=== PATIENT | female | born 1955 ===

== ENCOUNTER 2019-12-08 09:58 | Outpatient (CLI) | payer MEDICAID ==
--- NOTE | 2019-12-08 16:44 | Consultation ---
DATE OF CONSULTATION: 12/08/2019 CONSULTING PHYSICIAN: Lefty Pathak MD. CHIEF COMPLAINT: Stool OB positive x2. PAST MEDICAL HISTORY: None. PAST SURGICAL HISTORY: Ovarian cyst removal in 1984. MEDICATIONS: She is taking calcium supplement. FAMILY HISTORY: Mother had ovarian cancer. SOCIAL HISTORY: The patient drinks 3 glasses of wine a day. She used to be a smoker, she quit. ALLERGIES: No known drug allergies. REVIEW OF SYSTEMS: Negative. PHYSICAL EXAMINATION: HEENT: Normocephalic and atraumatic. Sclerae anicteric. NECK: Supple. No evidence of obvious lymphadenopathy. CARDIOVASCULAR: Regular rate and rhythm. Plus S1, S2. LUNGS: Clear to auscultation bilaterally. ABDOMEN: Positive bowel sounds. Soft and nontender. No rebound. No guarding. No peritoneal sign. EXTREMITIES: No cyanosis. No clubbing. No edema. ASSESSMENT AND PLAN: This is a 64-year-old female with stool OB positive x2, needs endoscopy and colonoscopy. The patient was given instruction for both. Prep was explained to her. Risks and benefits of procedure were explained to her. We are going to schedule her when authorization is obtained. Lefty Pathak M.D. DR: [id number] JOB#: [id number] CC:
== END 2019-12-08 11:58 | disposition home or self-care (01) ==
LOC: PAN 09:58
DX: K92.1 Melena (principal); Z87.891 Personal history of nicotine dependence; Z80.41 Family history of malignant neoplasm of ovary
CPT/HCPCS: G0463

== ENCOUNTER 2020-04-05 10:19 | Outpatient (CLI) | payer MEDICAID ==
[2020-04-05 11:22] VITALS: BP 141/87
== END 2020-04-05 12:19 | disposition home or self-care (01) ==
LOC: PAN 10:19
DX: R10.9 Unspecified abdominal pain (principal)
CPT/HCPCS: 99212